=== PATIENT | female | born 1970 ===

== ENCOUNTER 2023-02-22 16:34 | Emergency (ER) | payer SELFPAY ==
[2023-02-22] MEDS ORDERED: Losartan 50 MG Tab PO ONE (20:13)
[2023-02-22] MEDS ORDERED: traMADol 50 MG Tab PO ONE (20:13)
[2023-02-22] MEDS ORDERED: Ibuprofen 600 MG Tab PO ONE (20:13)
[2023-02-22] MEDS ORDERED: amLODIPine 5 MG Tab PO ONE (20:13)
== END 2023-02-22 20:59 | disposition home or self-care (01) ==
LOC: MW.ED 16:34
DX: S86.812A Strain of other muscle(s) and tendon(s) at lower leg level, left leg, initial encounter (principal); I10 Essential (primary) hypertension; Z88.5 Allergy status to narcotic agent; Z88.8 Allergy status to other drugs, medicaments and biological substances; Z79.899 Other long term (current) drug therapy; W18.40XA Slipping, tripping and stumbling without falling, unspecified, initial encounter
CPT/HCPCS: 73562; 99283; A9270